=== PATIENT | female | born 1965 | race Caucasian/White ===

== ENCOUNTER → 2016-08-03 | Outpatient (CLI) | payer OTHER ==
[2016-08-03 10:21] LABS: Basophils # (A) 0.1 k/uL (0-0.2); Basophils % (A) 1 %; CH 28.6; CHCM 33.3; Eosinophils # (A) 0.1 k/uL (0-0.7); Eosinophils % (A) 1 %; HCT 39.8 % (34.0-46.0); HDW 2.63; HGB 12.7 gm/dL (11.4-16.0); Luc # (Auto) 0.07; Luc % (Auto) 2; Lymphocytes # (A) 1.4 k/uL (1.0-4.8); Lymphocytes % (A) 29 %; MCH 27.5 pg (25.0-35.0); Mean Platelet Volume 9.9; Monocytes # (A) 0.2 k/uL (0-1.0); Monocytes % (A) 4 %; Neutrophils % (A) 63 %; RBC 4.62 m/uL (3.80-5.40); RDW 13.2 % (11.5-15.5); WBC 4.8 k/uL (3.8-10.6); WBC (Perox) 5.08
[2016-08-03 10:42] LABS: ALT 31 U/L (9-52); AST 23 U/L (14-36); Alkaline Phosphatase 66 U/L (38-126); Anion Gap 10 mmol/L; Blood Urea Nitrogen 13 mg/dL (7-17); Calcium 9.2 mg/dL (8.4-10.2); Carbon Dioxide 27 mmol/L (22-30); Chloride 103 mmol/L (98-107); Cholesterol 152 mg/dL (<200); Glucose 144 mg/dL (74-99); HDL Cholesterol 69 mg/dL (40-60); Non-African American GFR(MDRD) >60 (>60 ml/min/1.73 sqM); Potassium 4.7 mmol/L (3.5-5.1); Sodium 140 mmol/L (137-145); Total Bilirubin 0.8 mg/dL (0.2-1.3); Total Protein 7.2 g/dL (6.3-8.2); Triglycerides 56 mg/dL (<150)
[2016-08-03 19:59] LABS: Hemoglobin A1C 7.3 % (4.2-6.1)
== END | disposition home or self-care (01) ==
LOC: LABWHC1 09:36
PROVIDERS: ATTEND Family Medicine
DX: E10.9 Type 1 diabetes mellitus without complications (principal)
CPT/HCPCS: 36415; 80053; 80061; 82043; 83036; 84443; 85025

== ENCOUNTER → 2016-09-17 | Outpatient (CLI) | payer OTHER ==
--- NOTE | 2016-09-20 09:20 | MM ---
Reason for exam: screening (asymptomatic). Last mammogram was performed 1 year ago. Physical Findings: A clinical breast exam by your physician is recommended on an annual basis and results should be correlated with mammographic findings. MG Screening Mammo w CAD Bilateral CC and MLO view(s) were taken. Prior study comparison: September 06, 2015, bilateral MG screening mammo w CAD. February 06, 2014, bilateral MG screening mammo w CAD. December 19, 2012, bilateral digital screening mammo w/CAD. There are scattered fibroglandular densities. There is no discrete abnormality. ASSESSMENT: Negative, BI-RAD 1 RECOMMENDATION: Routine screening mammogram of both breasts in 1 year.
== END | disposition home or self-care (01) ==
LOC: RADMAMWWP 14:54
PROVIDERS: ATTEND Family Medicine
DX: Z12.31 Encounter for screening mammogram for malignant neoplasm of breast (principal)

== ENCOUNTER → 2017-03-04 | Outpatient (CLI) | payer BC ==
[2017-03-04 11:09] LABS: ALT 44 U/L (9-52); AST 29 U/L (14-36); Alkaline Phosphatase 80 U/L (38-126); Anion Gap 10 mmol/L; Blood Urea Nitrogen 13 mg/dL (7-17); Calcium 9.2 mg/dL (8.4-10.2); Carbon Dioxide 28 mmol/L (22-30); Chloride 102 mmol/L (98-107); Cholesterol 148 mg/dL (<200); Glucose 170 mg/dL (74-99); HDL Cholesterol 70 mg/dL (40-60); Non-African American GFR(MDRD) >60 (>60 ml/min/1.73 sqM); Potassium 4.6 mmol/L (3.5-5.1); Sodium 140 mmol/L (137-145); Total Bilirubin 0.7 mg/dL (0.2-1.3); Total Protein 7.4 g/dL (6.3-8.2)
[2017-03-04 14:23] LABS: Hemoglobin A1C 7.6 % (4.2-6.1)
== END | disposition home or self-care (01) ==
LOC: LABWHC1 10:14
PROVIDERS: ATTEND Family Medicine
DX: E10.9 Type 1 diabetes mellitus without complications (principal)
CPT/HCPCS: 36415; 80053; 80061; 83036

== ENCOUNTER → 2017-09-20 | Outpatient (CLI) | payer BC ==
[2017-09-20 10:20] LABS: Basophils % (A) 1 %; Eosinophils # (A) 0.1 k/uL (0-0.7); Eosinophils % (A) 1 %; HCT 38.4 % (34.0-46.0); HGB 12.5 gm/dL (11.4-16.0); Lymphocytes # (A) 1.2 k/uL (1.0-4.8); Lymphocytes % (A) 21 %; MCH 27.8 pg (25.0-35.0); MCHC 32.5 g/dL (31.0-37.0); MCV 85.4 fL (80.0-100.0); Mean Platelet Volume 9.5; Monocytes # (A) 0.2 k/uL (0-1.0); Monocytes % (A) 3 %; Neutrophils % (A) 73 %; Platelet Count 222 k/uL (150-450); RBC 4.49 m/uL (3.80-5.40); WBC 5.5 k/uL (3.8-10.6)
[2017-09-20 10:33] LABS: ALT 27 U/L (9-52); AST 19 U/L (14-36); Albumin 3.9 g/dL (3.5-5.0); Alkaline Phosphatase 81 U/L (38-126); Anion Gap 9 mmol/L; Blood Urea Nitrogen 10 mg/dL (7-17); Calcium 9.4 mg/dL (8.4-10.2); Carbon Dioxide 30 mmol/L (22-30); Chloride 102 mmol/L (98-107); Cholesterol 138 mg/dL (<200); Glucose 142 mg/dL (74-99); HDL Cholesterol 62 mg/dL (40-60); LDL Cholesterol,Calculated 64 mg/dL (0-99); Potassium 4.3 mmol/L (3.5-5.1); Sodium 141 mmol/L (137-145); Total Bilirubin 0.6 mg/dL (0.2-1.3); Triglycerides 58 mg/dL (<150)
[2017-09-20 19:22] LABS: Hemoglobin A1C 6.9 % (4.0-6.0)
== END | disposition home or self-care (01) ==
LOC: LABWHC1 09:56
PROVIDERS: ATTEND Family Medicine
DX: E10.9 Type 1 diabetes mellitus without complications (principal)
CPT/HCPCS: 36415; 80053; 80061; 82043; 82570; 83036; 84443; 85025

== ENCOUNTER → 2018-03-22 | Outpatient (CLI) | payer BC ==
[2018-03-22 11:07] LABS: ALT 33 U/L (9-52); AST 26 U/L (14-36); Albumin 3.7 g/dL (3.5-5.0); Alkaline Phosphatase 66 U/L (38-126); Anion Gap 10 mmol/L; Blood Urea Nitrogen 13 mg/dL (7-17); Carbon Dioxide 24 mmol/L (22-30); Chloride 105 mmol/L (98-107); Cholesterol 109 mg/dL (<200); Glucose 103 mg/dL (74-99); HDL Cholesterol 40 mg/dL (40-60); LDL Cholesterol,Calculated 59 mg/dL (0-99); Potassium 4.4 mmol/L (3.5-5.1); Sodium 139 mmol/L (137-145); Total Bilirubin 0.8 mg/dL (0.2-1.3); Total Protein 6.8 g/dL (6.3-8.2); Triglycerides 50 mg/dL (<150)
[2018-03-22 19:12] LABS: Hemoglobin A1C 6.7 % (4.0-6.0)
== END | disposition home or self-care (01) ==
LOC: LABWHC1 10:19
PROVIDERS: ATTEND Family Medicine
DX: E10.9 Type 1 diabetes mellitus without complications (principal)
CPT/HCPCS: 36415; 80053; 80061; 83036

== ENCOUNTER → 2018-05-02 | Outpatient (CLI) | payer BC ==
--- NOTE | 2018-05-04 10:44 | MM ---
Reason for exam: screening (asymptomatic). Last mammogram was performed 1 year and 7 months ago. MG 3D Screening Mammo W/Cad Bilateral CC and MLO view(s) were taken. Prior study comparison: September 17, 2016, bilateral MG screening mammo w CAD. September 06, 2015, bilateral MG screening mammo w CAD. There are scattered fibroglandular densities. No significant changes when compared with prior studies. ASSESSMENT: Negative, BI-RAD 1 RECOMMENDATION: Routine screening mammogram of both breasts in 1 year.
== END ==
LOC: RADMAMWWP 15:12
PROVIDERS: ATTEND Family Medicine
DX: Z12.31 Encounter for screening mammogram for malignant neoplasm of breast (principal)
CPT/HCPCS: 77063; 77067

== ENCOUNTER → 2018-10-06 | Outpatient (CLI) | payer BC ==
[2018-10-06 10:50] LABS: Basophils # (A) 0.1 k/uL (0-0.2); Basophils % (A) 1 %; Eosinophils # (A) 0.1 k/uL (0-0.7); Eosinophils % (A) 1 %; HCT 39.3 % (34.0-46.0); HGB 13.2 gm/dL (11.4-16.0); Lymphocytes # (A) 1.4 k/uL (1.0-4.8); Lymphocytes % (A) 21 %; MCH 27.9 pg (25.0-35.0); MCHC 33.7 g/dL (31.0-37.0); MCV 82.9 fL (80.0-100.0); Mean Platelet Volume 10.6; Monocytes # (A) 0.2 k/uL (0-1.0); Monocytes % (A) 4 %; Neutrophils # (A) 4.9 k/uL (1.3-7.7); Neutrophils % (A) 73 %; Platelet Count 226 k/uL (150-450); RBC 4.74 m/uL (3.80-5.40); RDW 14.5 % (11.5-15.5); WBC 6.8 k/uL (3.8-10.6)
[2018-10-06 16:45] LABS: Albumin 4.2 g/dL (3.80-4.90); Albumin/Globulin Ratio 1.68 (1.60-3.17); Anion Gap 5.8 mmol/L (4.00-12.00); Calcium 9.2 mg/dL (8.7-10.3); Carbon Dioxide 27.2 mmol/L (21.6-31.8); Globulin 2.5 g/dL (1.6-3.3); LDL Cholesterol,Calculated 74.6 mg/dL (0.0-131.0); Potassium 4.2 mmol/L (3.5-5.5); Total Bilirubin 0.8 mg/dL (0.3-1.2); Total Protein 6.7 g/dL (6.2-8.2); VLDL Calculation 10.4 mg/dL (5.00-40.00)
[2018-10-06 17:55] LABS: Hemoglobin A1C 7.8 % (4.0-6.0)
== END | disposition home or self-care (01) ==
LOC: LABWHC1 09:58
PROVIDERS: ATTEND Family Medicine
DX: E10.9 Type 1 diabetes mellitus without complications (principal)
CPT/HCPCS: 36415; 80053; 80061; 82043; 82570; 83036; 84443; 85025

== ENCOUNTER → 2019-05-21 | Outpatient (CLI) | payer BC ==
[2019-05-21 17:00] LABS: ALT 23 U/L (8-44); AST 26 U/L (13-35); African American GFR (CKD) 116.3 (60.0-200.0); Alkaline Phosphatase 75 U/L (41-126); BUN/Creat Ratio 18.57 Ratio (12.00-20.00); Carbon Dioxide 28.5 mmol/L (21.6-31.8); Chloride 106 mmol/L (96-109); Chol/HDL Ratio 2.56; Cholesterol 141 mg/dL (0-200); Globulin 2.3 g/dL (1.6-3.3); Glucose 58 mg/dL (70-110); Sodium 142 mmol/L (135-145); Total Bilirubin 0.5 mg/dL (0.2-1.2); Total Protein 6.2 g/dL (6.2-8.2); Triglycerides <50.0 mg/dL (0.0-149.0)
[2019-05-21 19:53] LABS: Hemoglobin A1C 8.2 % (4.0-6.0)
== END | disposition home or self-care (01) ==
LOC: LABWHC1 08:33
PROVIDERS: ATTEND Family Medicine
DX: E10.9 Type 1 diabetes mellitus without complications (principal)
CPT/HCPCS: 36415; 80053; 80061; 83036

== ENCOUNTER → 2019-12-04 | Outpatient (CLI) | payer BC ==
[2019-12-04 10:30] LABS: Basophils % (A) 1 %; Eosinophils # (A) 0.2 k/uL (0-0.7); Eosinophils % (A) 2 %; HGB 13.9 gm/dL (11.4-16.0); Lymphocytes # (A) 1.6 k/uL (1.0-4.8); Lymphocytes % (A) 24 %; MCHC 33.8 g/dL (31.0-37.0); MCV 88.7 fL (80.0-100.0); Mean Platelet Volume 9.7; Monocytes # (A) 0.2 k/uL (0-1.0); Monocytes % (A) 3 %; Neutrophils # (A) 4.4 k/uL (1.3-7.7); Neutrophils % (A) 68 %; Platelet Count 231 k/uL (150-450); RBC 4.62 m/uL (3.80-5.40); RDW 13.1 % (11.5-15.5); WBC 6.5 k/uL (3.8-10.6)
[2019-12-04 10:36] LABS: ALT 52 U/L (4-34); AST 53 U/L (14-36); African American GFR (CKD) >90 (>60 ml/min/1.73 sqM); Albumin 3.9 g/dL (3.5-5.0); Alkaline Phosphatase 85 U/L (38-126); Anion Gap 7 mmol/L; Blood Urea Nitrogen 12 mg/dL (7-17); Calcium 9.2 mg/dL (8.4-10.2); Carbon Dioxide 28 mmol/L (22-30); Chloride 104 mmol/L (98-107); Cholesterol 146 mg/dL (<200); Glucose 65 mg/dL (74-99); HDL Cholesterol 69 mg/dL (40-60); LDL Cholesterol,Calculated 65 mg/dL (0-99); Non-African American GFR(CKD) >90 (>60 ml/min/1.73 sqM); Potassium 4.6 mmol/L (3.5-5.1); Sodium 139 mmol/L (137-145); Total Bilirubin 0.6 mg/dL (0.2-1.3); Total Protein 7.1 g/dL (6.3-8.2); Triglycerides 61 mg/dL (<150)
[2019-12-04 18:14] LABS: Hemoglobin A1C 7.4 % (4.0-6.0)
[2019-12-05 00:42] LABS: Urine Creatinine 151.4 mg/dL
--- NOTE | 2019-12-06 07:59 | MM ---
Reason for exam: screening (asymptomatic). Last mammogram was performed 1 year and 7 months ago. Physical Findings: A clinical breast exam by your physician is recommended on an annual basis and results should be correlated with mammographic findings. MG 3D Screening Mammo W/Cad Bilateral CC and MLO view(s) were taken. Prior study comparison: May 02, 2018, bilateral MG 3d screening mammo w/cad. September 17, 2016, bilateral MG screening mammo w CAD. There are scattered fibroglandular densities. There is no discrete abnormality. ASSESSMENT: Negative, BI-RAD 1 RECOMMENDATION: Routine screening mammogram of both breasts in 1 year.
== END | disposition home or self-care (01) ==
LOC: RADMAMWWP 09:02
PROVIDERS: ATTEND Family Medicine
DX: Z12.31 Encounter for screening mammogram for malignant neoplasm of breast (principal); E10.9 Type 1 diabetes mellitus without complications
CPT/HCPCS: 36415; 77063; 77067; 80053; 80061; 82043; 82570; 83036; 84443; 85025

== ENCOUNTER → 2021-05-01 | Outpatient (CLI) | payer BC ==
--- NOTE | 2021-05-05 08:12 | MM ---
Reason for exam: screening (asymptomatic). Last mammogram was performed 1 year and 5 months ago. Physical Findings: A clinical breast exam by your physician is recommended on an annual basis and results should be correlated with mammographic findings. MG 3D Screening Mammo W/Cad Bilateral CC, MLO, and XCCL view(s) were taken. Prior study comparison: December 04, 2019, bilateral MG 3d screening mammo w/cad. May 02, 2018, bilateral MG 3d screening mammo w/cad. September 17, 2016, bilateral MG screening mammo w CAD. There are scattered fibroglandular densities. No significant changes when compared with prior studies. ASSESSMENT: Negative, BI-RAD 1 RECOMMENDATION: Routine screening mammogram of both breasts in 1 year.
== END | disposition home or self-care (01) ==
LOC: RADMAMWWP 15:54
PROVIDERS: ATTEND Family Medicine
DX: Z12.31 Encounter for screening mammogram for malignant neoplasm of breast (principal)
CPT/HCPCS: 77063; 77067

== ENCOUNTER 2021-05-27 09:10 | Inpatient (IN) | payer BC ==
[2021-05-27] MEDS ORDERED: SODIUM CHLORIDE 0.9% 500 ML 500 ML IV STA (10:06)
[2021-05-27 10:35] LABS: Basophils % (A) 0 %; Eosinophils % (A) 0 %; HCT 38.9 % (34.0-46.0); HGB 13.4 gm/dL (11.4-16.0); Lymphocytes # (A) 0.9 k/uL (1.0-4.8); Lymphocytes % (A) 10 %; MCH 29.6 pg (25.0-35.0); MCHC 34.3 g/dL (31.0-37.0); MCV 86.3 fL (80.0-100.0); Mean Platelet Volume 9.4; Monocytes # (A) 0.3 k/uL (0-1.0); Monocytes % (A) 3 %; Neutrophils # (A) 7.7 k/uL (1.3-7.7); Neutrophils % (A) 86 %; Platelet Count 259 k/uL (150-450); RBC 4.51 m/uL (3.80-5.40); RDW 13.6 % (11.5-15.5)
--- NOTE | 2021-05-27 10:37 | ED ---
General Adult HPI - General Chief complaint: Neuro Symptoms/Deficit Stated complaint: Loss of mobilitiy rt side Time Seen by Provider: 05/27/21 09:44 Source: patient, RN notes reviewed, old records reviewed Mode of arrival: ambulatory Limitations: no limitations - History of Present Illness Initial comments: 55-year-old female presenting with right-sided arm and leg weakness over the past 3 days. Patient initially woke up on Tuesday morning with some weakness which resolved throughout the day. This is happened twice since then. She states she feels as though her right arm and right leg are not coordinated. She has no previous history of CVA. She has a history of hyperlipidemia and diabetes. She denies headache. Denies chest pain. Denies abdominal pain. Denies fever. - Related Data Home Medications Medication Instructions Recorded Confirmed Simvastatin [Zocor] 20 mg PO HS 03/13/14 05/27/21 Insulin Aspart [Insulin Aspart See Protocol SQ TID-W/MEALS MDD 30 05/27/21 05/27/21 Flexpen] units Insulin Degludec [Tresiba 44 units SQ HS 05/27/21 05/27/21 Flextouch U-200 Pen] lisinopriL [Zestril] 5 mg PO HS 05/27/21 05/27/21 Allergies Allergy/AdvReac Type Severity Reaction Status Date / Time pseudoephedrine HCl Allergy Rash/Hives Verified 05/27/21 12:01 [From [facility]] Review of Systems ROS Statement: Those systems with pertinent positive or pertinent negative responses have been documented in the HPI. ROS Other: All systems not noted in ROS Statement are negative. 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, ELEVATED LIVER ENZYMES History of Any Multi-Drug Resistant Organisms: None Reported Past Surgical History: No Surgical Hx Reported Additional Past Surgical History / Comment(s): TOOTH EXTRACTION,FACIAL MOLE REMOVED Past Anesthesia/Blood Transfusion Reactions: Previous Problems w/ Anesthesia Additional Past Anesthesia/Blood Transfusion Reaction / Comment(s): DIFFICULTY WAKING Past Psychological History: No Psychological Hx Reported Smoking Status: Never smoker Past Alcohol Use History: Rare Past Drug Use History: None Reported - Past Family History Father Additional Family Medical History / Comment(s): AT AGE 42 FROM LEUKEMIA, PSORIASES Mother Family Medical History: CVA/TIA, Diabetes Mellitus, Myocardial Infarction ([place]) Additional Family Medical History / Comment(s): GLAUCOMA, General Exam Limitations: no limitations General appearance: alert, in no apparent distress Head exam: Present: atraumatic, normocephalic Eye exam: Present: normal appearance, PERRL ENT exam: Present: normal exam Neck exam: Present: normal inspection. Absent: tenderness, meningismus Respiratory exam: Present: normal lung sounds bilaterally. Absent: respiratory distress, wheezes Cardiovascular Exam: Present: regular rate, normal rhythm GI/Abdominal exam: Present: soft. Absent: distended, tenderness, guarding Extremities exam: Present: normal inspection, normal capillary refill Neurological exam: Present: alert, oriented X3, CN II-XII intact, motor sensory deficit (Drift right lower extremity, NIH of 1) Psychiatric exam: Present: normal affect, normal mood Skin exam: Present: warm, dry, intact. Absent: cyanosis, diaphoretic Course Vital Signs 05/27/21 05/27/21 09:19 12:46 Temperature 97.9 F Pulse Rate 77 78 Respiratory 18 16 Rate Blood Pressure 157/70 128/80 O2 Sat by Pulse 98 98 Oximetry EKG Findings - EKG Comments: EKG Findings:: EKG: Normal sinus rhythm rate of 78, [place] interval 154, QRS duration 84, QTC [address] segment elevation. Medical Decision Making - Medical Decision Making 55-year-old female presenting with 3 days of intermittent right-sided numbness and weakness. On exam the patient has a slight drift of the right lower extremity. There is no upper extremity drift or weakness. No facial asymmetry, normal speech. Workup is initiated for this patient include a CT CT angiography. These are both negative. She has normal CBC, normal CMP. Patient is not a TPA candidate given the low NIH of 1 and 3 days of duration of her symptoms. I do recommend she be admitted for further stroke evaluation. Case discussed with Dr. Tijerina, who will admit with neurology on consultation. - Lab Data Result diagrams: 05/27/21 10:30 05/27/21 10:30 Lab Results 05/27/21 05/27/21 05/27/21 Range/Units 10:30 10:30 10:30 WBC 9.0 (3.8-10.6) k/uL RBC 4.51 (3.80-5.40) m/uL Hgb 13.4 (11.4-16.0) gm/dL Hct 38.9 (34.0-46.0) % MCV 86.3 (80.0-100.0) fL MCH 29.6 (25.0-35.0) pg MCHC 34.3 (31.0-37.0) g/dL RDW 13.6 (11.5-15.5) % Plt Count 259 (150-450) k/uL MPV 9.4 Neutrophils % 86 % Lymphocytes % 10 % Monocytes % 3 % Eosinophils % 0 % Basophils % 0 % Neutrophils # 7.7 (1.3-7.7) k/uL Lymphocytes # 0.9 L (1.0-4.8) k/uL Monocytes # 0.3 (0-1.0) k/uL Eosinophils # 0.0 (0-0.7) k/uL Basophils # 0.0 (0-0.2) k/uL PT 9.9 (9.0-12.0) sec INR 0.9 (<1.2) APTT 24.0 (22.0-30.0) sec Sodium 139 (137-145) mmol/L Potassium 4.3 (3.5-5.1) mmol/L Chloride 105 (98-107) mmol/L Carbon Dioxide 26 (22-30) mmol/L Anion Gap 8 mmol/L BUN 13 (7-17) mg/dL Creatinine 0.64 (0.52-1.04) mg/dL Est GFR (CKD-EPI)AfAm >90 (>60 ml/min/1.73 sqM) Est GFR (CKD-EPI)NonAf >90 (>60 ml/min/1.73 sqM) Glucose 133 H (74-99) mg/dL Calcium 9.3 (8.4-10.2) mg/dL Total Bilirubin 0.5 (0.2-1.3) mg/dL AST 36 (14-36) U/L ALT 32 (4-34) U/L Alkaline Phosphatase 82 (38-126) U/L Troponin I (0.000-0.034) ng/mL Total Protein 7.1 (6.3-8.2) g/dL Albumin 3.9 (3.5-5.0) g/dL 05/27/21 Range/Units 10:30 WBC (3.8-10.6) k/uL RBC (3.80-5.40) m/uL Hgb (11.4-16.0) gm/dL Hct (34.0-46.0) % MCV (80.0-100.0) fL MCH (25.0-35.0) pg MCHC (31.0-37.0) g/dL RDW (11.5-15.5) % Plt Count (150-450) k/uL MPV Neutrophils % % Lymphocytes % % Monocytes % % Eosinophils % % Basophils % % Neutrophils # (1.3-7.7) k/uL Lymphocytes # (1.0-4.8) k/uL Monocytes # (0-1.0) k/uL Eosinophils # (0-0.7) k/uL Basophils # (0-0.2) k/uL PT (9.0-12.0) sec INR (<1.2) APTT (22.0-30.0) sec Sodium (137-145) mmol/L Potassium (3.5-5.1) mmol/L Chloride (98-107) mmol/L Carbon Dioxide (22-30) mmol/L Anion Gap mmol/L BUN (7-17) mg/dL Creatinine (0.52-1.04) mg/dL Est GFR (CKD-EPI)AfAm (>60 ml/min/1.73 sqM) Est GFR (CKD-EPI)NonAf (>60 ml/min/1.73 sqM) Glucose (74-99) mg/dL Calcium (8.4-10.2) mg/dL Total Bilirubin (0.2-1.3) mg/dL AST (14-36) U/L ALT (4-34) U/L Alkaline Phosphatase (38-126) U/L Troponin I <0.012 (0.000-0.034) ng/mL Total Protein (6.3-8.2) g/dL Albumin (3.5-5.0) g/dL Disposition Clinical Impression: Cerebrovascular accident (CVA) Disposition: ADMITTED IP TO THIS HOSP Condition: Stable Is patient prescribed a controlled substance at d/c from ED?: No Referrals: Lamin De Leon MD [Primary Care Provider] - 1-2 days Decision to Admit Reason: Admit from EC Decision Date: 05/27/21 Decision Time: 13:09
[2021-05-27 10:44] LABS: ALT 32 U/L (4-34); AST 36 U/L (14-36); Albumin 3.9 g/dL (3.5-5.0); Alkaline Phosphatase 82 U/L (38-126); Calcium 9.3 mg/dL (8.4-10.2); Carbon Dioxide 26 mmol/L (22-30); Glucose 133 mg/dL (74-99); Potassium 4.3 mmol/L (3.5-5.1); Sodium 139 mmol/L (137-145); Total Bilirubin 0.5 mg/dL (0.2-1.3)
[2021-05-27 10:45] LABS: African American GFR (CKD) >90 (>60 ml/min/1.73 sqM); Anion Gap 8 mmol/L; Blood Urea Nitrogen 13 mg/dL (7-17); Chloride 105 mmol/L (98-107); Non-African American GFR(CKD) >90 (>60 ml/min/1.73 sqM); Total Protein 7.1 g/dL (6.3-8.2)
[2021-05-27 11:06] LABS: INR 0.9 (<1.2); Prothrombin Time 9.9 sec (9.0-12.0)
--- NOTE | 2021-05-27 12:01 | XR ---
EXAMINATION TYPE: XR chest 2V DATE OF EXAM: 05/27/2021 COMPARISON: None HISTORY: 55-year-old female confusion, altered mental status TECHNIQUE: AP and lateral views FINDINGS: Heart limits of normal in size. Aorta and pulmonary vasculature within normal limits. Mild interstiti al prominence is a chronic appearance. No consolidation or pleural effusion. IMPRESSION: Chronic appearing changes without acute cardiopulmonary process.
--- NOTE | 2021-05-27 12:16 | CT ---
EXAMINATION TYPE: CT brain wo con DATE OF EXAM: 05/27/2021 COMPARISON: None HISTORY: right side weakness CT DLP: 985.[address] of the brain was performed. The ventricles, basal cisterns and sulci overlying the cerebral convexities demonstrate a normal appe arance. There is no evidence for intracranial hemorrhage or sulcal effacement. No mass effects are seen. Osseous calvarium is intact. If symptoms persist consider MRI as clinically warranted. IMPRESSION: 1. No acute intracranial process is seen at this time.
--- NOTE | 2021-05-27 12:24 | CT ---
EXAMINATION TYPE: CT angio head neck DATE OF EXAM: 05/27/2021 COMPARISON: None HISTORY: right side weakness CT DLP: 517.8 mGycm CONTRAST: Performed with IV Contrast, patient injected with 65 mL of Isovue 370. Combination Contrast CTA cervical carotids and [place] CTA cervical carotids with 3-D recons truction Contrast CTA of the cervical carotids was performed 3-D reconstruction imaging obtained at a separate workstation. Right carotid system: Mild plaque is seen of the right common carotid artery. There is mild plaque a lso noted at the carotid bulb and proximal ICA. No significant diameter reduction. ECA is patent. Right vertebral artery appears unremarkable. Left carotid system: Mild plaque is seen of the left common carotid artery. There is mild plaque als o noted at the carotid bulb and proximal ICA. No significant diameter reduction. ECA is patent. Lef t vertebral artery appears unremarkable. IMPRESSION: 1. No significant diameter reduction to account for the patient's symptoms. CTA [place] with 3-D reconstruction Contrast CTA of the [place] was performed 3-D reconstruction imaging obtained at a separate workstation. Vertebrobasilar system as well as intracranial portions of the internal carotid arteries and their [place] tributaries are patent. I do not see evidence for sizable aneurysm or vascular malformation. Pl ease note MRI provides greater sensitivity and specificity. Visualized brain appears grossly unremar kable. IMPRESSION: 1. No significant abnormality. NASCET criteria was used in interpretation of this exam?
[2021-05-27] MEDS ORDERED: ASPIRIN 325 MG TAB PO STA (12:32)
[2021-05-27] MEDS: SODIUM CHLORIDE 0.9% 1,000 ML IV SCH (15:34)
--- NOTE | 2021-05-27 16:10 | US ---
EXAMINATION TYPE: US carotid duplex BILAT DATE OF EXAM: 05/27/2021 COMPARISON: NONE CLINICAL HISTORY: CVA. EXAM MEASUREMENTS: RIGHT: Peak Systolic Velocity (PSV) cm/sec ----- Right CCA: 107.0 ----- Right ICA: 110.5 ----- Right ECA: 103.1 ICA/CCA ratio: 1.0 RIGHT: End Diastole cm/sec ----- Right CCA: 19.8 ----- Right ICA: 31.4 ----- Right ECA: 8.7 LEFT: Peak Systolic Velocity (PSV) cm/sec ----- Left CCA: 114.9 ----- Left ICA: 108.0 ----- Left ECA: 126.8 ICA/CCA ratio: 0.9 LEFT: End Diastole cm/sec ----- Left CCA: 22.8 ----- Left ICA: 32.4 ----- Left ECA: 16.1 VERTEBRALS (direction of flow): Right Vertebral: Antegrade Left Vertebral: Antegrade Rhythm: Normal No significant stenosis IMPRESSION: No evidence for hemodynamically significant stenosis. Criteria for Assigning % of Stenosis / Diameter reduction (Estimation based on the indirect measurements of the internal carotid artery velocities (ICA PSV). 1. Normal (no stenosis)=ICA PSV < 125 cm/s: ratio < 2.0: ICA EDV<40 cm/s. 2. Less than 50% stenosis=ICA PSV < 125 cm/s: ratio < 2.0: ICA EDV<40 cm/s. 3. 50 to 69% stenosis=ICA PSV of 125 to 230 cm/s: ration 2.0 ? 4.0: ICA EDV 40-100 cm/s. 4. Greater than 70% stenosis to near occlusion= ICA PSV > 230 cm/s: ratio > 4.0: ICA EDV > 100 cm/s. 5. Near occlusion= ICA PSV velocities may be low or undetectable: variable ratio and ICA EDV. 6. Total occlusion=unable to detect flow.
--- NOTE | 2021-05-27 16:34 | P.CNNES ---
History of Present Illness Consult date: 05/27/21 Requesting physician: Jeff Walker Reason for Consult: Stroke/TIA History of Present Illness: This is a 55-year-old woman with medical history of diabetes mellitus who presented to the emergency department on 05/27/2021 for right-sided weakness. She said he had recurrent episode of weakness that started this past Tuesday in the AM, when she woke-up she noticed her right side was weak and felt like "royal" feeling. She denies any associated paresthesia, left side deficits, visual disturbance, headache, word finding difficulty, swallowing. The episode last for about 20-30 minutes then resolved. Then had another brief same episode that over the right side then resolved. Then had another episode this morning upon waking-up at 6:30am she noticed her right upper and lower extremity was weak and felt it was rubbery and felt improvement at 10am. Her last normal state was 10pm yesterday. She continues to denies any other associated problems with it. Patient denies of any history of stroke or TIA in the past. She denies of history of seizure or Migraine. She takes ASA 81mg daily and on Zocor 20mg qhs as protective since has diabetes. She has a brother who has multiple sclerosis. Patient rarely drinks alcohol. She denies any illicit drug use or tobacco use. Workup in the hospital consisted of: Initial vital signs was blood pressure 157/70, heart rate of 77, respiratory of 18, temperature of 97.9 Fahrenheit oral pulse ox of 98% room air. CBC with differential is unremarkable. Sodium is 139, creatinine 0.64, serum glucose 133, calcium is 9.3, AST of 36, ALT of 32. CT of the head is reported as no acute process seen at this time. I personally could not review images since there is only a report and there is no imaging that's uploaded for both the CT and the CT angiography of the head and neck CT angiography of the head and neck support as no significant diameter reduction to account for the patient's symptoms. No significant abnormality. EKG is reported as normal sinus rhythm. Normal EKG. In the ED patient had NIH 1 for right leg deficit. Review of Systems Review of system: The 12 point system was reviewed and apparent positive and ne gative per HPI. 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, ELEVATED LIVER ENZYMES History of Any Multi-Drug Resistant Organisms: None Reported Past Surgical History: No Surgical Hx Reported Additional Past Surgical History / Comment(s): TOOTH EXTRACTION,FACIAL MOLE REMOVED Past Anesthesia/Blood Transfusion Reactions: Previous Problems w/ Anesthesia Additional Past Anesthesia/Blood Transfusion Reaction / Comment(s): DIFFICULTY WAKING Past Psychological History: No Psychological Hx Reported Smoking Status: Never smoker Past Alcohol Use History: Rare Past Drug Use History: None Reported - Past Family History Father Additional Family Medical History / Comment(s): AT AGE 42 FROM LEUKEMIA, PSORIASES Mother Family Medical History: CVA/TIA, Diabetes Mellitus, Myocardial Infarction ([place]) Additional Family Medical History / Comment(s): GLAUCOMA, Medications and Allergies Home Medications Medication Instructions Recorded Confirmed Type Simvastatin [Zocor] 20 mg PO HS 03/13/14 05/27/21 History Insulin Aspart [Insulin Aspart See Protocol SQ TID-W/MEALS MDD 30 05/27/21 05/27/21 History Flexpen] units Insulin Degludec [Tresiba 44 units SQ HS 05/27/21 05/27/21 History Flextouch U-200 Pen] lisinopriL [Zestril] 5 mg PO HS 05/27/21 05/27/21 History Allergies Allergy/AdvReac Type Severity Reaction Status Date / Time pseudoephedrine HCl Allergy Rash/Hives Verified 05/27/21 12:01 [From [facility]] Physical Examination - Vital Signs Vital Signs: Vital Signs Temp Pulse Resp BP Pulse Ox 05/27/21 12:46 78 16 128/80 98 05/27/21 09:19 97.9 F 77 18 157/70 98 Intake and Output 05/26/21 05/27/21 05/27/21 22:59 06:59 14:59 Other: Weight 86.183 kg GENERAL: The patient is lying in bed and is not in acute distress. CHEST: The heart rate is regular rate rhythm. No murmurs to auscultation. No carotid bruit bilaterally. LUNG: Clear to auscultation bilaterally no wheezing noted throughout. Not labored breathing. ABDOMEN/GI: Bowel sounds present in all 4 quadrants. No tenderness to palpation throughout. NEUROLOGICAL: Higher mental function: The patient is awake, alert, oriented to self, place and time. Patient is following commands. No aphasia and no neglect. Cranial nerves: The pupils are round, equal and reactive to light and accommodation. Visual garland are full to confrontation throughout. Extraocular movement is intact no nystagmus is noted. Facial sensation is normal to touch throughout. The facial strength is normal throughout. Hearing is normal bilaterally to hand rub. Tongue is midline and moved [id number] without any difficulty. No dysarthria is noted. Shoulder shrug is normal bilaterally. Motor: Gait seems unsteady and slow but was not swaying toward one side or the other. The strength is 5 over 5 throughout. Normal tone and bulk. Cerebellum: Normal finger to nose bilaterally. Sensation: Sensation is normal to touch throughout. Reflexes (right/left): 3+ throughout except ankles are 2+. Plantars are downgoing bilaterally. Results - Laboratory Findings CBC and BMP: 05/27/21 10:30 05/27/21 10:30 Abnormal Lab Findings: Abnormal Labs 05/27/21 05/27/21 10:30 10:30 Lymphocytes # 0.9 L Glucose 133 H Assessment and Plan Assessment: * Recurrent transient right hemiparesis (onset is 05/24/2021. Had total of 3 episodes (Tuesday, Tuesday and Tuesday (05/27/21). On examination her gait is unsteady). Seems Possible acute stroke. No IV TPA since outside the window. Cannot rule out other etiologies (such as Demyelinatin diseases (especially with family history of MS) * Diabetes mellitus * Hyperlipidemia Plan: Patient was given aspirin 325 once then the patient was started on aspirin 325mg daily (was at home dose of ASA 81mg daily). I will not start the patient on dual antiplatelets untill we have more information from MRI. Patient was started on Lipitor 80 mg daily at bedtime by ED and is to be continued for secondary stroke prophylaxis MRI Brain is ordered by the primary team and is pending. I also ordered MRI of the cervical spine with and without. Lipid panel, hemoglobin A1c are ordered. I ordered TSH level 2-D echo is ordered and is pending. Continue neuro checks On cardiac monitoring PT OT and HUMAN RESOURCES DIRECTOR are consulted We'll defer the rest of medical management to the primary team DVT prophylaxis will defer management to primary team (recommend SCD for now until we get result of MRI). The plan is discussed with the patient and her nurse. Thank you for the Consultation. Karel Urena M.D. Neuro-hospitalist Time with Patient: Greater than 30
[2021-05-27] MEDS ORDERED: INSULIN ASPART (NovoLOG) 100 UNIT/ML VIAL SQ PRN (17:30)
--- NOTE | 2021-05-27 17:46 | P.HPIM ---
History of Present Illness H&P Date: 05/27/21 Chief Complaint: Right-sided coordination issues 55-year-old woman with medical history of hypertension, hyperlipidemia, type 1 diabetes presented for 3 days of difficulty coordinating right-sided extremity movements. Patient says that upon waking up on Tuesday, patient noticed that she had trouble coordinating her right upper extremity as well as right lower extremity. In addition she felt like her right upper extremity felt rubbery. She notes that throughout the day she tried to walk this off and felt that her symptoms abated by the following day, however, her symptoms returned again this morning prompting concern. She presented to the emergency room for further evaluation. She denies fevers, chills, nausea, vomiting, chest pain, palpitations, syncope, presyncope, cough, dyspnea, abdominal pain, diarrhea, constipation, dysuria, dyschezia, numbness/weakness of extremities. She does report some tingling in the extremities which is normal for her. Workup thus far include brain CT, CT angiography, carotid Doppler on the EKG, chest x-ray with no major abnormalities identified. Lab work is also largely unremarkable except for mildly elevated glucose. 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, ELEVATED LIVER ENZYMES History of Any Multi-Drug Resistant Organisms: None Reported Past Surgical History: No Surgical Hx Reported Additional Past Surgical History / Comment(s): TOOTH EXTRACTION,FACIAL MOLE REMOVED Past Anesthesia/Blood Transfusion Reactions: Previous Problems w/ Anesthesia Additional Past Anesthesia/Blood Transfusion Reaction / Comment(s): DIFFICULTY WAKING Past Psychological History: No Psychological Hx Reported Smoking Status: Never smoker Past Alcohol Use History: Rare Past Drug Use History: None Reported - Past Family History Father Additional Family Medical History / Comment(s): AT AGE 42 FROM LEUKEMIA, PSORIASES Mother Family Medical History: CVA/TIA, Diabetes Mellitus, Myocardial Infarction (CT) Additional Family Medical History / Comment(s): GLAUCOMA, Medications and Allergies Home Medications Medication Instructions Recorded Confirmed Type Simvastatin [Zocor] 20 mg PO HS 03/13/14 05/27/21 History Insulin Aspart [Insulin Aspart See Protocol SQ TID-W/MEALS MDD 30 05/27/21 05/27/21 History Flexpen] units Insulin Degludec [Tresiba 44 units SQ HS 05/27/21 05/27/21 History Flextouch U-200 Pen] lisinopriL [Zestril] 5 mg PO HS 05/27/21 05/27/21 History Allergies Allergy/AdvReac Type Severity Reaction Status Date / Time pseudoephedrine HCl Allergy Rash/Hives Verified 05/27/21 12:01 [From [facility]] Physical Exam Osteopathic Statement: *. No significant issues noted on an osteopathic structural exam other than those noted in the History and Physical/Consult. Vitals: Vital Signs Temp Pulse Resp BP Pulse Ox 05/27/21 16:26 97.8 F 85 18 140/70 97 05/27/21 12:46 78 16 128/80 98 05/27/21 09:19 97.9 F 77 18 157/70 98 Intake and Output 05/27/21 05/27/21 05/27/21 06:59 14:59 22:59 Other: Weight 86.183 kg Gen: awake, alert HEENT: normocephalic, atraumatic, good hearing acuity, moist mucous membranes Resp: good air exchange, breathing comfortably with no accessory muscle use, clear to auscultation bilaterally CVS: good distal perfusion x 4, regular rate and rhythm without murmurs GI: soft, NTTP, ND : no SPT, no CVAT, sexton catheter not present MSK: no pitting edema, no clubbing Neuro: 5 out of 5 motor strength in all 4 extremities, no sensory deficits, cranial nerves II through XII are intact, no deficits in finger to nose or heel to deluna Psych: cooperative, euthymic mood Results CBC & Chem 7: 05/27/21 10:30 05/27/21 10:30 Labs: Abnormal Lab Results - Last 24 Hours (Table) 05/27/21 05/27/21 Range/Units 10:30 10:30 Lymphocytes # 0.9 L (1.0-4.8) k/uL Glucose 133 H (74-99) mg/dL Assessment and Plan Assessment: Right-sided Ataxia -Admit to observation, telemetry -Echocardiogram -MRI -TSH, A1c, lipid panel pending -Neurology consulted -PT/OT/speech therapy -Neurochecks Type 1 diabetes Hypertension Hyperlipidemia -Resume home medications Patient is a full code
--- NOTE | 2021-05-27 20:30 | MR ---
EXAMINATION TYPE: MR brain/cspine wo/w DATE OF EXAM: 05/27/2021 COMPARISON: HISTORY: Transient recurrent right sided weakness since 05-24-21. CVA vs MS CONTRAST: Standard multiplanar, multisequence MRI departmental protocol images were obtained without contrast a nd with 8.5 mL intravenous Gadavist gadolinium contrast. Diffusion images show no evidence of an acute infarct. Ventricles have normal size. There is no mass effect nor midline shift. There is no evidence of intracranial hemorrhage. The diallo-white matter stru ctures have fairly normal signal pattern. There is no evidence of cerebral edema. Sella turcica appea rs normal. Corpus callosum appears normal. Brainstem appears intact. The cervical vertebra have normal alignment. Disc spaces are fairly normal. There is a mild to modera te posterior disc herniation at C6-7 into the spinal canal. There is narrowing of the spinal canal at C6-7 that measures 7 mm. The cervical spinal cord has normal signal pattern. There is no edema. Prev ertebral soft tissues are intact. There is no evidence of cervical paraspinal mass. Contrast images s how no pathologic enhancement. There is normal enhancement of the venous sinuses. IMPRESSION: Negative MR scan of the brain. There is a mild posterior C6-7 cervical disc herniation with a mild relative 7 mm spinal stenosis. No fracture.
[2021-05-27 20:48] LABS: Glucose,Whole Blood 134 mg/dL (75-99)
[2021-05-27] MEDS ORDERED: ATORVASTATIN 80 MG TAB PO SCH (21:00)
[2021-05-27] MEDS ORDERED: lisinopriL 5 MG TAB PO SCH (21:00)
[2021-05-27] MEDS ORDERED: INSULIN DETEMIR (LEVEMIR) 100 UNIT/ML SYR SQ SCH (21:00)
[2021-05-28 06:15] LABS: Glucose,Whole Blood 37 mg/dL (75-99)
[2021-05-28 06:30] LABS: Glucose,Whole Blood 36 mg/dL (75-99)
[2021-05-28 06:39] VITALS: PULSE 68
[2021-05-28 06:40] LABS: Glucose,Whole Blood 40 mg/dL (75-99)
[2021-05-28] MEDS ORDERED: DEXTROSE 50% SYRINGE 50 ML IVP ONE (06:40)
[2021-05-28] MEDS: SODIUM CHLORIDE 0.9% 1,000 ML IV SCH (06:50)
[2021-05-28 06:55] LABS: Glucose,Whole Blood 125 mg/dL (75-99)
[2021-05-28 08:24] VITALS: BP 138/64; RESP 16; TEMP 98.1
[2021-05-28 08:28] LABS: Glucose,Whole Blood 221 mg/dL (75-99)
[2021-05-28] MEDS ORDERED: ASPIRIN 325 MG TAB PO SCH (09:00)
[2021-05-28] MEDS ORDERED: ASPIRIN 81 MG PO SCH (09:00)
--- NOTE | 2021-05-28 10:57 | P.PN ---
Subjective Progress Note Date: 05/28/21 Patient is seen at bedside and she stated he is doing drastically better currently. She denies any further neurological deficits at this moment. She said overnight she had episode of right-sided weakness and she checked her sugar and it was in the 30s. Patient had multiple episodes during this hospital stay of sugar in the 30s to 40s. Objective - Vital Signs Vital signs: Vital Signs Temp 98.1 F 05/28/21 08:00 Pulse 68 05/28/21 04:00 Resp 16 05/28/21 08:00 BP 138/64 05/28/21 08:00 Pulse Ox 98 05/28/21 08:00 Intake & Output 05/27/21 05/28/21 05/28/21 18:59 06:59 18:59 Weight 86.183 kg 86.183 kg Other: Voiding Method Toilet # Voids 1 - Exam GENERAL: The patient is lying in bed and is not in acute distress. NEUROLOGICAL: Higher mental function: The patient is awake, alert, oriented to self, place and time. Patient is following commands. No aphasia and no neglect. Cranial nerves: The pupils are round, equal and reactive to light and a ccommodation. Visual garland are full to confrontation throughout. Extraocular movement is intact no nystagmus is noted. Facial sensation is normal to touch throughout. The facial strength is normal throughout. Hearing is normal bilaterally to hand rub. Tongue is midline and moved [id number] without any difficulty. No dysarthria is noted. Shoulder shrug is normal bilaterally. Motor: Gait is normal with normal arm swing. The strength is 5 over 5 throughout. Normal tone and bulk. Cerebellum: Normal finger to nose bilaterally. Sensation: Sensation is normal to touch throughout. Reflexes (right/left): 3+ throughout except ankles are 2+. Plantars are downgoing bilaterally. WORK-UP: Dozier Virus PCR is not detected. CT of the head is reported as no acute process seen at this time. I personally could not review images since there is only a report and there is no imaging that's uploaded for both the CT and the CT angiography of the head and neck CT angiography of the head and neck support as no significant diameter reduction to account for the patient's symptoms. No significant abnormality. MRI of the brain with and without is reported as negative. I personally reviewed it and that there is no evidence of acute or subacute ischemia and there is no evidence of anything that is enhancing. MRI the cervical with and without is reported as mild posterior C6-C7 cervical disc herniation with a mild relative 7 mm spinal stenosis. No fracture. Carotid duplex is reported as no evidence for hemodynamic significant stenosis. EKG is reported as normal sinus rhythm. Normal EKG. POC glucose was 37 at 6:13AM as well as 36 at 6:29AM as well as 40 at 6:38 AM today. - Labs CBC & Chem 7: 05/27/21 10:30 05/27/21 10:30 Labs: Abnormal Lab Results - Last 24 Hours (Table) 05/27/21 05/27/21 05/28/21 Range/Units 10:30 20:46 06:13 Glucose 133 H (74-99) mg/dL POC Glucose (mg/dL) 134 H 37 L (75-99) mg/dL 05/28/21 05/28/21 05/28/21 Range/Units 06:29 06:38 06:53 Glucose (74-99) mg/dL POC Glucose (mg/dL) 36 L 40 L 125 H (75-99) mg/dL 05/28/21 Range/Units 08:27 Glucose (74-99) mg/dL POC Glucose (mg/dL) 221 H (75-99) mg/dL Assessment and Plan Assessment: * Recurrent transient right hemiparesis (onset is 05/24/2021. Had total of 3 episodes and had few episodes while inpatient): Is due to her hypoglycemia which can mimic stroke-like symptoms. * Repeated hypoglycemia as low as 36 during this hospital admission. * Mild C6 to C7 spondylosis * Diabetes mellitus * Hyperlipidemia Plan: * I will place the patient on her home dose of ASA 81mg daily (rather than 325mg daily) since unlikely stroke or TIA. We'll decrease the patient the Lipitor from 80 to40 mg daily at bedtime and on discharge recommend the patient to be on her home medication of Zocor 20 mg daily at bedtime.. * 2-D echo, lipid panel, HbA1C are pending * Continue neuro checks * On cardiac monitoring * PT OT and REEL SLITTER are consulted * Please avoid any further hypoglycemia. We'll defer the management to the primary team. * We'll defer the rest of medical management to the primary team * If the patient continues to have right-sided weakness even though the sugar is controlled then the please notify neurology team. Otherwise patient is clear from a neurological perspective. Recommend for the patient to follow-up with a neurologist one time because of her symptoms as an outpatient within 1-2 w eeks. Her cervical spondylosis it is mild over the C6-C7 and she can follow up as an outpatient but from a neurological perspective she does not need surgery at this point. The plan is discussed with the patient and her nurse. There is no further workup needed at this time. Please notify neurology if any further concerns. Karel Urena M.D. Neuro-hospitalist Time with Patient: Less than 30
[2021-05-28 11:37] LABS: Glucose,Whole Blood 179 mg/dL (75-99)
--- NOTE | 2021-05-28 11:59 | P.DS ---
Providers Date of admission: 05/27/21 13:08 Expected date of discharge: 05/28/21 Attending physician: Adriane Tijerina MD Consults: 05/27/21 13:07 Consult Physician Routine Consulting Provider: Karel Urena Consult Reason/Comments: CVA Do you want consulting provider notified?: Yes Primary care physician: [facility] Course: 55-year-old woman with medical history of hypertension, hyperlipidemia, type 1 diabetes presented for 3 days of difficulty coordinating right-sided extremity movements. Right-sided Ataxia -Admitted to observation, telemetry. MRI did not demonstrate stroke, no abnormal findings. Neurology consulted. CT Head and H/N did not demonstrate vascular abnormalities or hemorrhage. Echo was deferred due to clear etiology of symptoms as below. Type 1 diabetes Hypoglycemia -Patient's home dose insulin was resumed, but patient's symptoms returned at the same time that CBG checks indicated hypoglycemia to the 30s. Pt has been increasing her pre-meal insulin dose and skipping night time meals leading to AM hypoglycemia. Pt was counseled on this and her insulin was down-titrated appropriately on discharge with instructions to f/u with PCP for further titration as necessary. Hypertension Hyperlipidemia -Resumed home medications, no changes Assessment: Gen: awake, alert HEENT: normocephalic, atraumatic, good hearing acuity, moist mucous membranes Resp: good air exchange, breathing comfortably with no accessory muscle use, clear to auscultation bilaterally CVS: good distal perfusion x 4, regular rate and rhythm without murmurs GI: soft, NTTP, ND : no SPT, no CVAT, sexton catheter not present MSK: no pitting edema, no clubbing Neuro: 5 out of 5 motor strength in all 4 extremities, no sensory deficits, cranial nerves II through XII are intact, no deficits in finger to nose or heel to deluna Psych: cooperative, euthymic mood Patient Condition at Discharge: Good Plan - Discharge Summary New Discharge Prescriptions: New Aspirin 81 mg PO DAILY tab Continue Simvastatin [Zocor] 20 mg PO HS lisinopriL [Zestril] 5 mg PO HS Insulin Aspart [Insulin Aspart Flexpen] See Protocol SQ TID-W/MEALS #0 MDD 30 units Changed Insulin Degludec [Tresiba Flextouch U-200 Pen] 36 units SQ HS #0 Discharge Medication List Simvastatin [Zocor] 20 mg PO HS 09/10/14 [History] lisinopriL [Zestril] 5 mg PO HS 05/27/21 [History] Aspirin 81 mg PO DAILY tab 05/28/21 [Rx] Insulin Aspart [Insulin Aspart Flexpen] See Protocol SQ TID-W/MEALS #0 MDD 30 units 05/28/21 [Rx] Insulin Degludec [Tresiba Flextouch U-200 Pen] 36 units SQ HS #0 05/28/21 [Rx] Follow up Appointment(s)/Referral(s): Lamin De Leon MD [Primary Care Provider] - 1-2 days Patient Instructions/Handouts: Hypoglycemia in a Person with Diabetes (DC) Discharge Disposition: HOME SELF-CARE
[2021-05-28] MEDS ORDERED: ATORVASTATIN 40 MG TAB PO SCH (21:00)
== END 2021-05-28 12:17 | disposition home or self-care (01) | DRG 638 ==
LOC: EC 09:10 → 3SCARD 13:08
PROVIDERS: ADMIT Internal Medicine; ATTEND Internal Medicine
DX: E10.649 Type 1 diabetes mellitus with hypoglycemia without coma (principal); G81.91 Hemiplegia, unspecified affecting right dominant side; R27.0 Ataxia, unspecified; Z20.822 Contact with and (suspected) exposure to COVID-19; M47.812 Spondylosis without myelopathy or radiculopathy, cervical region; K21.9 Gastro-esophageal reflux disease without esophagitis; E78.5 Hyperlipidemia, unspecified; I10 Essential (primary) hypertension; R29.701 NIHSS score 1; Z79.4 Long term (current) use of insulin; Z79.82 Long term (current) use of aspirin; Z88.8 Allergy status to other drugs, medicaments and biological substances; Z79.899 Other long term (current) drug therapy
CPT/HCPCS: 36415; 70450; 70496; 70498; 70553; 71046; 72156; 80053; 84484; 85025; 85610; 85730; 87635; 93005; 93880; 99285

== ENCOUNTER 2021-08-01 11:03 | Emergency (ER) | payer BC ==
[2021-08-01 11:09] VITALS: BP 144/75; PULSE 74; RESP 18; TEMP 97.6
--- NOTE | 2021-08-01 11:41 | ED ---
General Adult HPI - General Chief complaint: Upper Respiratory Infection Stated complaint: Covid +, sore throat & cough Time Seen by Provider: 08/01/21 11:11 Source: patient Mode of arrival: ambulatory Limitations: no limitations - History of Present Illness Initial comments: This 55-year-old female with past abdominal history of diabetes mellitus prese nts to the emergency department with COVID-19, requesting the antibiotic infusion. Patient states on Tuesday she began having a cough, runny nose, sore throat and fever of 99.5. Patient states she tested positive for COVID-19 yesterday and is here to see if she could get that antibiotic infusion. Patient states she has been taking Tylenol for symptom relief which has seemed to help. Patient denies any chest pain, shortness of breath, abdominal pain, headache, change in vision, change in bowel bladder, change in appetite. - Related Data Home Medications Medication Instructions Recorded Confirmed Simvastatin [Zocor] 20 mg PO HS 03/13/14 05/27/21 lisinopriL [Zestril] 5 mg PO HS 05/27/21 05/27/21 Previous Rx's Medication Instructions Recorded Aspirin 81 mg PO DAILY tab 05/28/21 Insulin Aspart [Insulin Aspart See Protocol SQ TID-W/MEALS #0 05/28/21 Flexpen] MDD 30 units Insulin Degludec [Tresiba 36 units SQ HS #0 05/28/21 Flextouch U-200 Pen] Allergies Allergy/AdvReac Type Severity Reaction Status Date / Time pseudoephedrine HCl Allergy Rash/Hives Verified 08/01/21 11:07 [From [facility]] Review of Systems ROS Statement: Those systems with pertinent positive or pertinent negative responses have been documented in the HPI. ROS Other: All systems not noted in ROS Statement are negative. 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,-2014 ELEVATED LIVER ENZYMES History of Any Multi-Drug Resistant Organisms: None Reported Past Surgical History: No Surgical Hx Reported Additional Past Surgical History / Comment(s): TOOTH EXTRACTION,FACIAL MOLE REMOVED Past Anesthesia/Blood Transfusion Reactions: Previous Problems w/ Anesthesia Additional Past Anesthesia/Blood Transfusion Reaction / Comment(s): DIFFICULTY WAKING Past Psychological History: No Psychological Hx Reported Smoking Status: Never smoker Past Alcohol Use History: Rare Past Drug Use History: None Reported - Past Family History Father Additional Family Medical History / Comment(s): AT AGE 42 FROM LEUKEMIA, PSORIASES Mother Family Medical History: CVA/TIA, Diabetes Mellitus, Myocardial Infarction (OR) Additional Family Medical History / Comment(s): GLAUCOMA, General Exam Limitations: no limitations General appearance: alert, in no apparent distress Head exam: Present: atraumatic, normocephalic Eye exam: Present: EOMI ENT exam: Present: mucous membranes moist Neck exam: Present: full ROM Respiratory exam: Present: normal lung sounds bilaterally. Absent: respiratory distress, wheezes, rales, rhonchi, stridor Cardiovascular Exam: Present: regular rate, normal rhythm, normal heart sounds. Absent: systolic murmur, diastolic murmur, rubs, gallop, clicks GI/Abdominal exam: Present: soft, normal bowel sounds. Absent: distended, tenderness, guarding, rebound, rigid Extremities exam: Present: full ROM Back exam: Absent: tenderness, CVA tenderness (R), CVA tenderness (L) Neurological exam: Present: alert, oriented X3, CN II-XII intact Psychiatric exam: Present: normal affect, normal mood Skin exam: Present: warm, dry, intact, normal color. Absent: rash Course Vital Signs 08/01/21 11:07 Temperature 97.6 F Pulse Rate 74 Respiratory 18 Rate Blood Pressure 144/75 O2 Sat by Pulse 98 Oximetry Medical Decision Making - Medical Decision Making This 55-year-old female presenting to the emergency department with COVID-19. Patient did not qualify for the COVID-19 antibody infusion. Patient sent home, conservative therapy was discussed. Patient advised to follow-up with primary care provider in next 24-48 hours. Patient denies any chest pain or shortness of breath. Strict return precautions were discussed. Patient verbally agreed to plan. Patient sent home in stable condition. Disposition Clinical Impression: COVID-19 Disposition: HOME SELF-CARE Condition: Stable Instructions (If sedation given, give patient instructions): Coronavirus Disease 2019 (COVID-19) Additional Instructions: Please return to the emergency department with any concerning, new, or worsening symptoms. Please up with primary care provider next 24-48 hours. Take [id number] zinc, vitamin C, vitamin D. Advised to a pulse oximeter from [facility] and return to the emergency department if oxygen drops below 90%. Is patient prescribed a controlled substance at d/c from ED?: No Referrals: Lamin De Leon MD [Primary Care Provider] - 1-2 days Time of Disposition: 11:41
== END 2021-08-01 12:00 | disposition home or self-care (01) ==
LOC: EC 11:03
DX: U07.1 COVID-19 (principal); E11.9 Type 2 diabetes mellitus without complications; E78.5 Hyperlipidemia, unspecified; K21.9 Gastro-esophageal reflux disease without esophagitis; Z79.82 Long term (current) use of aspirin; Z79.4 Long term (current) use of insulin
CPT/HCPCS: 99283

== ENCOUNTER → 2021-11-14 | Outpatient (CLI) | payer BC ==
--- NOTE | 2021-11-14 15:33 | MR ---
EXAMINATION TYPE: MR lumbar spine wo con DATE OF EXAM: 11/14/2021 COMPARISON: None HISTORY: Numbness in legs, paresthesia of lower extremity Multiplanar multiecho imaging of the lumbar spine without contrast. Lumbar vertebra have normal alignment. There is mild degenerative disc space narrowing in the lumbar spine. No compression fracture. There is a small posterior concentric L4-5 disc herniation. There is developmentally adequate spinal canal and no spinal stenosis. No evidence of focal bone destruction. No lumbar paraspinal mass. The neural foramina are fairly well maintained. IMPRESSION: Minor degenerative disc changes. Mild posterior L4-5 disc bulging. No spinal stenosis. No fracture.
== END | disposition home or self-care (01) ==
LOC: RADMRIMAIN 09:58
PROVIDERS: ATTEND Family Medicine
DX: M51.26 Other intervertebral disc displacement, lumbar region (principal); M51.36 Other intervertebral disc degeneration, lumbar region
CPT/HCPCS: 72148

== ENCOUNTER → 2022-05-12 | Outpatient (CLI) | payer BC ==
--- NOTE | 2022-05-13 15:48 | MM ---
Reason for Exam: Screening (asymptomatic). Last mammogram was performed 1 year(s) and 1 month(s) ago. Patient History: Menarche at age 15. First Full-Term at age 25. Patient has history of breast feeding. Risk Values: Zoya 5 year model risk: 1.0%. NCI Lifetime model risk: 7.5%. Prior Study Comparison: 12/19/2012 Bilateral Screening Mammogram, [facility]. 02/06/2014 Bilateral Screening Mammogram, [facility]. 09/06/2015 Bilateral Screening Mammogram, [facility]. 09/17/2016 Bilateral Screening Mammogram, [facility]. 05/02/2018 Bilateral Screening Mammogram, [facility]. 12/04/2019 Bilateral Screening Mammogram, [facility]. 05/01/2021 Bilateral Screening Mammogram, [facility]. Tissue Density: There are scattered fibroglandular densities. Findings: Analyzed By CAD. Findings appear stable. No suspicious groups of microcalcifications, spiculated or lobular masses, architectural distortion or other secondary signs of malignancy are mammographically apparent. Overall Assessment: Benign, BI-RAD 2 Management: Screening Mammogram of both breasts in 1 year. A negative mammogram report should not preclude additional follow up of suspicious palpable abnormalities. Patient should continue monthly self breast exam. A clinical breast exam by your physician is recommended on an annual basis and results should be correlated with mammographic findings. Electronically signed and approved by: Lencho Anthony D.O. Radiologis
== END | disposition home or self-care (01) ==
LOC: RADMAMWWP 16:45
PROVIDERS: ATTEND Family Medicine
DX: Z12.31 Encounter for screening mammogram for malignant neoplasm of breast (principal)
CPT/HCPCS: 77063; 77067

== ENCOUNTER → 2022-05-18 | Outpatient (CLI) | payer BC ==
[2022-05-18 13:38] VITALS: BP 127/82; PULSE 79; RESP 16; TEMP 97.9
--- NOTE | 2022-05-18 14:33 | P.HPOB ---
History of Present Illness H&P Date: 05/18/22 Chief Complaint: The patient is here for her routine gynecologic exam. This is a 56-year-old with an LMP of 04/25/2022. The patient is here to establish with this office. It has been about 4 or 5 years since her last pelvic exam. Menstrual periods began being less predictable about 1 year ago. They have been anywhere from every 3 weeks to 2-3 months. Flow has also been variable. She did have some hot flashes or night sweats 1-2 years ago, but they are now not very bothersome. She is otherwise without complaints. Review of Systems The patient's weight has been stable over the last year. She denies respiratory, cardiac, or G.I. problems. Past Medical History Past Medical History: Diabetes Mellitus, GERD/Reflux, Hyperlipidemia Additional Past Medical History / Comment(s): Type 1 diabetes. 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 History of Any Multi-Drug Resistant Organisms: None Reported Past Surgical History: No Surgical Hx Reported Additional Past Surgical History / Comment(s): TOOTH EXTRACTION,FACIAL MOLE REMOVED Past Anesthesia/Blood Transfusion Reactions: Previous Problems w/ Anesthesia Additional Past Anesthesia/Blood Transfusion Reaction / Comment(s): DIFFICULTY WAKING Past Psychological History: No Psychological Hx Reported (She denies current depression.) Smoking Status: Never smoker Past Alcohol Use History: Rare (5 per year) Past Drug Use History: None Reported Additional History: She has been since 2017 and this is her second marriage. - Past Family History Father Family Medical History: Cancer Additional Family Medical History / Comment(s): AT AGE 42 FROM LEUKEMIA, PSORIASES Mother Family Medical History: CVA/TIA, Diabetes Mellitus, Myocardial Infarction ([place]) Additional Family Medical History / Comment(s): GLAUCOMA, Brother(s) Family Medical History: Diabetes Mellitus Additional Family Medical History / Comment(s): 5 brothers have diabetes. Sister(s) Family Medical History: Diabetes Mellitus Medications and Allergies Home Medications Medication Instructions Recorded Confirmed Type Simvastatin [Zocor] 20 mg PO HS 03/13/14 05/18/22 History lisinopriL [Zestril] 5 mg PO HS 05/27/21 05/18/22 History Aspirin 81 mg PO DAILY tab 05/28/21 05/18/22 Rx Insulin Aspart [Insulin Aspart See Protocol SQ TID-W/MEALS #0 05/28/21 05/18/22 Rx Flexpen] MDD 30 units Insulin Degludec [Tresiba 18 units SQ HS 08/01/21 05/18/22 History Flextouch U-200 Pen] flaxseed oiL [Flaxseed Oil] 1,000 mg PO HS 08/01/21 05/18/22 History Multivitamin [Multivitamins Adult 1 cap PO DAILY 05/18/22 05/18/22 History Gummies] Tirzepatide [Mounjaro] 2.5 mg INJ WEEKLY 05/18/22 05/18/22 History Allergies Allergy/AdvReac Type Severity Reaction Status Date / Time pseudoephedrine HCl Allergy Rash/Hives Verified 05/18/22 13:33 [From [facility]] Exam Vital Signs Temp Pulse Resp BP Pulse Ox 05/18/22 13:36 97.9 F 79 16 127/82 100 Intake and Output 05/17/22 05/18/22 05/18/22 22:59 06:59 14:59 Other: Weight 84.368 kg Height 5 feet 4 inches, weight 186 pounds, BMI 31.9. This is a well-developed well-nourished white female who is alert and oriented times 3 in no acute distress. HEENT: Within normal limits. NECK: Supple without mass or thyromegaly. CHEST AND LUNGS: Clear to auscultation. HEART: Regular rate and rhythm. BREASTS: Are without mass or discharge. AXILLARY EXAM: Negative for adenopathy. BACK: Negative for CVA tenderness. ABDOMEN: Soft, nontender, without palpable masses. There is a small glucose monitor on the left side of her abdomen. PELVIC EXAM: Normal external genitalia. Cervix and vagina appear normal. There is no unusual discharge. There is no evidence of prolapse. The uterus is midposition, nongravid size and nontender. There are no palpable adnexal masses or tenderness. RECTAL EXAM: Rectovaginal exam is negative for mass or tenderness and is negative for occult blood. EXTREMITIES: Nontender. IMPRESSION: 1. 56-year-old perimenopausal female with normal gynecologic exam. 2. Mild menstrual irregularity consistent with the perimenopause during the past 1 year. Minimal vasomotor symptoms. PLAN: 1. Pap smear cotest was performed. 2. Self breast awareness was discussed with the patient. We have also discussed symptoms associated with inflammatory breast cancer. 3. Screening mammogram was done on 05/12/2022 and was benign. 4. The patient will keep a menstrual calendar and call if menstrual problems. 5. Osteoporosis prevention was discussed. I have stressed the importance of adequate calcium, vitamin D and regular exercise. Recommended amounts of calcium and vitamin D were also discussed. 6. She has completed her Covid vaccination series and has received 2 boosters. 7. Colorectal cancer screening has been done through her PCP using Cologuard. She states it was negative in 2020. 8. She was advised to return in one year for her annual well woman exam and as needed.
== END | disposition home or self-care (01) ==
LOC: WWCWWP 13:18
PROVIDERS: ATTEND Obstetrics & Gynecology
DX: Z53.9 Procedure and treatment not carried out, unspecified reason (principal)

== ENCOUNTER → 2023-05-16 | Outpatient (CLI) | payer BC ==
--- NOTE | 2023-05-17 06:34 | MM ---
Reason for Exam: Screening (asymptomatic). Last screening mammogram was performed 12 month(s) ago. Patient History: Menarche at age 15. First Full-Term at age 25. Patient has history of breast feeding. Last menstrual period: 05/02/2023 Risk Values: Zoya 5 year model risk: 1.1%. NCI Lifetime model risk: 7.4%. Prior Study Comparison: 12/04/2019 Bilateral Screening Mammogram, [facility]. 05/01/2021 Bilateral Screening Mammogram, [facility]. 05/12/2022 Bilateral MG 3D screening mammo w/cad, [facility]. Tissue Density: There are scattered fibroglandular densities. Findings: Analyzed By CAD. There is no suspicious group of microcalcifications or new suspicious mass in either breast. Overall Assessment: Negative, BI-RAD 1 Management: Screening Mammogram of both breasts in 1 year. A clinical breast exam by your physician is recommended on an annual basis and results should be correlated with mammographic findings. Note on Zoya scores and lifetime risk: 1. A Zoya score greater than 3% is considered moderate risk. If this is the case, consider specialist referral to assess eligibility for a risk reducing agent. If overall lifetime risk for the development of breast cancer is 20% or higher, the patient may qualify for future screening with alternating mammogram and breast MRI. Electronically signed and approved by: Nathanael Power D.O.
== END | disposition home or self-care (01) ==
LOC: RADMAMWWP 15:59
PROVIDERS: ATTEND Family Medicine
DX: Z12.31 Encounter for screening mammogram for malignant neoplasm of breast (principal)
CPT/HCPCS: 77063; 77067

== ENCOUNTER 2023-11-25 20:33 | Emergency (ER) | payer BC ==
--- NOTE | 2023-11-25 21:40 | ED ---
Head Injury HPI - General Chief complaint: Head Injury Stated complaint: Head Injury Time Seen by Provider: 11/25/23 20:53 Source: patient, RN notes reviewed, old records reviewed Mode of arrival: ambulatory Limitations: no limitations - History of Present Illness Initial comments: This is a 58-year-old female to the ER for evaluation of head injury severe head injury headache neck pain this occurred after gardening statue fell on the patient's head. Patient has pain and increased pain with range of motion of that head with no travel history or sick contacts no other complaints. Patient has had some nausea and vomiting since with severe headache worst headache of her life MD Complaint: head injury, head pain -: days(s) Mechanism of Injury: work related injury, machine or tool related injury Previous Trauma to this Area: Yes Place: work Radiation: none Severity: severe Severity scale (1-10): 8 Consistency: constant Provoking factors: none known Other Injuries: none - Related Data Home Medications Medication Instructions Recorded Confirmed Simvastatin [Zocor] 20 mg PO HS 03/13/14 05/18/22 lisinopriL [Zestril] 5 mg PO HS 05/27/21 05/18/22 Insulin Degludec [Tresiba 18 units SQ HS 08/01/21 05/18/22 Flextouch U-200 Pen] flaxseed oiL [Flaxseed Oil] 1,000 mg PO HS 08/01/21 05/18/22 Multivitamin [Multivitamins Adult 1 cap PO DAILY 05/18/22 05/18/22 Gummies] Tirzepatide [Mounjaro] 2.5 mg INJ WEEKLY 05/18/22 05/18/22 Previous Rx's Medication Instructions Recorded Aspirin 81 mg PO DAILY tab 05/28/21 Insulin Aspart [Insulin Aspart See Protocol SQ TID-W/MEALS #0 05/28/21 Flexpen] MDD 30 units Allergies/Adverse reactions: Allergies Allergy/AdvReac Type Severity Reaction Status Date / Time pseudoephedrine HCl Allergy Rash/Hives Verified 11/25/23 20:50 [From [facility]afeconrad] Review of Systems ROS Statement: Those systems with pertinent positive or pertinent negative responses have been documented in the HPI. ROS Other: All systems not noted in ROS Statement are negative. Past Medical History Past Medical History: Diabetes Mellitus, GERD/Reflux, Hyperlipidemia Additional Past Medical History / Comment(s): Type 1 diabetes. 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 History of Any Multi-Drug Resistant Organisms: None Reported Past Surgical History: No Surgical Hx Reported Additional Past Surgical History / Comment(s): TOOTH EXTRACTION,FACIAL MOLE REMOVED Past Anesthesia/Blood Transfusion Reactions: Previous Problems w/ Anesthesia Additional Past Anesthesia/Blood Transfusion Reaction / Comment(s): DIFFICULTY WAKING Past Psychological History: No Psychological Hx Reported Smoking Status: Never smoker Past Alcohol Use History: Rare Past Drug Use History: None Reported - Past Family History Brother(s) Family Medical History: Diabetes Mellitus Additional Family Medical History / Comment(s): 5 brothers have diabetes. Sister(s) Family Medical History: Diabetes Mellitus Father Family Medical History: Cancer Additional Family Medical History / Comment(s): AT AGE 42 FROM [place]UKEM[place], PSORIASES Mother Family Medical History: CVA/TIA, Diabetes Mellitus, Myocardial Infarction ([place]) Additional Family Medical History / Comment(s): GLAUCOMA, General Exam Limitations: no limitations General appearance: alert, in no apparent distress Head exam: Present: atraumatic, normocephalic, normal inspection Eye exam: Present: normal appearance, PERRL, EOMI. Absent: scleral icterus, conjunctival injection, periorbital swelling ENT exam: Present: normal exam, mucous membranes moist Neck exam: Present: normal inspection. Absent: tenderness, meningismus, lymphadenopathy Respiratory exam: Present: normal lung sounds bilaterally. Absent: respiratory distress, wheezes, rales, rhonchi, stridor Cardiovascular Exam: Present: regular rate, normal rhythm, normal heart sounds. Absent: systolic murmur, diastolic murmur, rubs, gallop, clicks GI/Abdominal exam: Present: soft, normal bowel sounds. Absent: distended, tenderness, guarding, rebound, rigid Extremities exam: Present: normal inspection, full ROM, normal capillary refill. Absent: tenderness, pedal edema, joint swelling, calf tenderness Back exam: Present: normal inspection Neurological exam: Present: alert, oriented X3, CN II-XII intact Psychiatric exam: Present: normal affect, normal mood Skin exam: Present: warm, dry, intact, normal color. Absent: rash Course Vital Signs 11/25/23 11/25/23 20:47 23:15 Temperature 98.3 F 98.2 F Pulse Rate 70 74 Respiratory 68 H 18 Rate Blood Pressure 157/86 145/78 O2 Sat by Pulse 99 99 Oximetry - Reevaluation(s) Reevaluation #1: Medical records reviewed Reevaluation #2: Patient symptoms improved Reevaluation #3: Patient informed of results questions answered Reevaluation #4: Was pt. sent in by a medical professional or institution (, GISEL, COMPRESSED GAS EQUIPMENT MECHANIC, urgent care, hospital, or correction...) When possible be specific @ -no Did you speak to anyone other than the patient for history (EMS, parent, family, police, friend...)? What history was obtained from this source @ -no Did you review nursing and triage notes (agree or disagree)? Why? @ -agree Are old charts reviewed (outside hosp., previous admission, EMS record, old EKG, old radiological studies, urgent care reports/EKG's, correction records)? Report findings @ -yes Differential Diagnosis (chest pain, altered mental status, abdominal pain women, abdominal pain men, vaginal bleeding, weakness, fever, dyspnea, syncope, headache, dizziness, GI bleed, back pain, seizure, CVA, palpatations, mental health, musculoskeletal)? @ -prior EKG interpreted by me (3pts min.). @ -no X-rays interpreted by me (1pt min.). @ -no CT interpreted by me (1pt min.). @ -yes negative for acute disease U/S interpreted by me (1pt. min.). @ -no What testing was considered but not performed or refused? (CT, X-rays, U/S, labs)? Why? @ -none What meds were considered but not given or refused? Why? @ -none Did you discuss the management of the patient with other professionals (professionals i.e. , GISEL, COMPRESSED GAS EQUIPMENT MECHANIC, lab, RT, psych nurse, social services coordinator, addiction therapist, teacher, lodge officer, immigration case worker)? Give summary @ -no Was smoking cessation discussed for >3mins.? @ -no Were there social determinants of health that impacted care today? How? (Homelessness, low income, unemployed, alcoholism, drug addiction, transportation, low edu. Level, literacy, decrease access to med. care, nursing home, rehab)? @ -none Was there de-escalation of care discussed even if they declined (Discuss DNR or withdrawal of care, Hospice)? DNR status @ -no What co-morbidities impacted this encounter? (DM, HTN, Smoking, COPD, CAD, Cancer, CVA, ARF, Chemo, Hep., AIDS, mental health diagnosis, sleep apnea, morbid obesity)? @ -none Was patient admitted / discharged? Hospital course, mention meds given and route, prescriptions, significant lab abnormalities, going to OR and other pertinent info. @ - 58 female to ER for evaluation of head injury, patient has negative imaging of the brain headache is improved and patient can be discharged home Discharged Was critical care preformed (if so, how long)? @ -no Undiagnosed new problem with uncertain prognosis? @ -no Drug Therapy requiring intensive monitoring for toxicity (Heparin, Nitro, Insulin, Cardizem)? @ -no Were any procedures done? @ -no Diagnosis/symptom? @ -Head injury headache Acute, or Chronic, or Acute on Chronic? @ -Acute Uncomplicated (without systemic symptoms) or Complicated (systemic symptoms)? @ -Complicated Side effects of treatment? @ -no Exacerbation, Progression, or Severe Exacerbation? @ -exacerbation Poses a threat to life or bodily function? How? (Chest pain, [place], [place], pneumonia, PE, COPD, DKA, ARF, appy, cholecystitis, CVA, Diverticulitis, Homicidal, Suicidal, threat to staff... and all critical care pts) @ -yes significant head injury head injury headache Reevaluation #5: Differential Headache: Migraine, tension, cluster, carbon monoxide, central venous thrombosis, pension karma temporal arteritis, acute closure glaucoma, intercranial hemorrhage, mastoiditis, sinusitis, head injury, this is not meant to be an all-inclusive list. Medical Decision Making - Medical Decision Making 58 female to ER for evaluation of head injury, patient has negative imaging of the brain headache is improved and patient can be discharged home - Radiology Data Radiology results: report reviewed (CT of the brain brain C-spine is negative for traumatic injury), image reviewed Disposition Clinical Impression: Closed head injury Disposition: HOME SELF-CARE Condition: Good Instructions (If sedation given, give patient instructions): Concussion (ED) Is patient prescribed a controlled substance at d/c from ED?: No Referrals: Lamin De Leon MD [Primary Care Provider] - 1-2 days
--- NOTE | 2023-11-25 23:05 | CT ---
EXAM: CT Head Without Intravenous Contrast CLINICAL HISTORY: ITS.REASON CT Reason: fall TECHNIQUE: Axial computed tomography images of the head/brain without intravenous contrast. CTDI is 45.2 mGy and DLP is 1098 mGy-cm. This CT exam was performed using one or more of the following dose reduction techniques: automated exposure control, adjustment of the mA and/or kV according to patient size, and/or use of iterative reconstruction technique. COMPARISON: Comparison made to prior brain MRI from May 27, 2021. FINDINGS: Brain: Unremarkable. No hemorrhage. No significant white matter disease. No edema. Ventricles: Unremarkable. No ventriculomegaly. Bones/joints: Unremarkable. No acute fracture. Soft tissues: Unremarkable. Sinuses: Unremarkable as visualized. No acute sinusitis. Mastoid air cells: Unremarkable as visualized. No mastoid effusion. IMPRESSION: No evidence of acute intracranial pathology. EXAM: CT Cervical Spine Without Intravenous Contrast CLINICAL HISTORY: ITS.REASON CT Reason: fall TECHNIQUE: Axial computed tomography images of the cervical spine without intravenous contrast. CTDI is 10.3 mGy and DLP is 291.4 mGy-cm. This CT exam was performed using one or more of the following dose reduction techniques: automated exposure control, adjustment of the mA and/or kV according to patient size, and/or use of iterative reconstruction technique. COMPARISON: No relevant prior studies available. FINDINGS: Vertebrae: Unremarkable. No acute fracture. Discs/spinal canal/neural foramina: No acute findings. No spinal canal stenosis. Soft tissues: Unremarkable. IMPRESSION: No evidence of acute cervical spine pathology.
[2023-11-26 00:07] VITALS: BP 145/78; PULSE 74; RESP 18; TEMP 98.2
== END 2023-11-25 23:18 | disposition home or self-care (01) ==
LOC: EC 20:33
DX: S09.90XA Unspecified injury of head, initial encounter (principal); Z88.8 Allergy status to other drugs, medicaments and biological substances; W20.8XXA Other cause of strike by thrown, projected or falling object, initial encounter; Y99.0 Civilian activity done for income or pay
CPT/HCPCS: 72125; 70450; 99283; L0120

== ENCOUNTER → 2024-04-24 | Outpatient (CLI) | payer BC ==
[2024-04-24 11:37] VITALS: BP 134/76; PULSE 83; RESP 16; TEMP 98.5
--- NOTE | 2024-04-24 12:23 | P.HPOB ---
History of Present Illness H&P Date: 04/24/24 Chief Complaint: Patient is here for her routine gynecologic exam. This is a 58-year-old G3, P3 with an LMP of June 2023. Her menstrual periods continue to space out. She denies any significant hot flashes. Review of Systems She has lost about 22 pounds over the past 2 years. She states she was taking week OV for weight loss and more recently has been on Ozempic. She denies respiratory, cardiac, or GI problems. Past Medical History Past Medical History: Diabetes Mellitus, GERD/Reflux, Hyperlipidemia Additional Past Medical History / Comment(s): Type 1 diabetes. 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 History of Any Multi-Drug Resistant Organisms: None Reported Past Surgical History: No Surgical Hx Reported Additional Past Surgical History / Comment(s): TOOTH EXTRACTION,FACIAL MOLE REMOVED Past Anesthesia/Blood Transfusion Reactions: Previous Problems w/ Anesthesia Additional Past Anesthesia/Blood Transfusion Reaction / Comment(s): DIFFICULTY WAKING Past Psychological History: No Psychological Hx Reported Smoking Status: Never smoker Past Alcohol Use History: Occasional (0-2 drinks per month.) Past Drug Use History: None Reported Additional History: She has been since 2016 and this is her second marriage. - Past Family History Brother(s) Family Medical History: Diabetes Mellitus Additional Family Medical History / Comment(s): 5 brothers have diabetes. Sister(s) Family Medical History: Diabetes Mellitus Father Family Medical History: Cancer Additional Family Medical History / Comment(s): AT AGE 42 FROM [place]UKEM[place], PSORIASES Mother Family Medical History: CVA/TIA, Diabetes Mellitus, Myocardial Infarction ([place]) Additional Family Medical History / Comment(s): GLAUCOMA, Medications and Allergies Home Medications Medication Instructions Recorded Confirmed Type Simvastatin [Zocor] 20 mg PO HS 03/13/14 04/24/24 History lisinopriL [Zestril] 5 mg PO HS 05/27/21 04/24/24 History Aspirin 81 mg PO DAILY tab 05/28/21 04/24/24 Rx Insulin Aspart [Insulin Aspart See Protocol SQ TID-W/MEALS #0 05/28/21 04/24/24 Rx Flexpen] MDD 30 units Insulin Degludec [Tresiba 24 units SQ HS 08/01/21 04/24/24 History Flextouch U-200 Pen] flaxseed oiL [Flaxseed Oil] 1,000 mg PO HS 08/01/21 04/24/24 History Semaglutide [Ozempic] 0.5 mg INJ WEEKLY 04/24/24 04/24/24 History Allergies Allergy/AdvReac Type Severity Reaction Status Date / Time pseudoephedrine HCl Allergy Rash/Hives Verified 04/24/24 11:33 [From Sudafed] Exam Vital Signs Temp Pulse Resp BP Pulse Ox 04/24/24 11:35 98.5 F 83 16 134/76 99 Intake and Output 04/23/24 04/24/24 04/24/24 22:59 06:59 14:59 Other: Weight 74.389 kg Height 5 feet 5 inches, weight 164 pounds, BMI 27.3. This is a well-developed well-nourished white female who is alert and oriented times 3 in no acute distress. HEENT: Within normal limits. NECK: Supple without mass or thyromegaly. CHEST AND LUNGS: Clear to auscultation. HEART: Regular rate and rhythm. BREASTS: Are without mass or discharge. AXILLARY EXAM: Negative for adenopathy. BACK: Negative for CVA tenderness. ABDOMEN: Soft, nontender, without palpable masses. PELVIC EXAM: Normal external genitalia. Cervix is multiparous and has a benign appearing nabothian cyst on the anterior lip measuring approximately 1 x 0.5 cm. There is no unusual discharge. There is no evidence of prolapse. The uterus is midposition, nongravid size and nontender. There are no palpable adnexal masses or tenderness. RECTAL EXAM: Rectovaginal exam is negative for mass or tenderness and is negative for occult blood. EXTREMITIES: Nontender. IMPRESSION: 1. 58-year-old perimenopausal female with increasing oligomenorrhea and normal gynecologic exam. PLAN: 1. Pap smear was deferred since she had a negative Pap smear cotest on 05/18/2022. 2. Self breast awareness was discussed with the patient. We have also discussed symptoms associated with inflammatory breast cancer. 3. Screening mammogram will be due next month and the order slip was given to the patient for this. 4. Osteoporosis prevention was discussed. I have stressed the importance of adequate calcium, vitamin D and regular exercise. Recommended amounts of calcium and vitamin D were also discussed. 5. Keep a menstrual calendar and call if menstrual problems. She will also call if vaginal bleeding after 12 months of amenorrhea. 6. She was advised to return in one year for her annual well woman exam.
== END ==
LOC: WWCWWP 11:23
PROVIDERS: ATTEND Obstetrics & Gynecology

== ENCOUNTER → 2024-07-03 | Outpatient (CLI) | payer BC ==
--- NOTE | 2024-07-03 09:12 | MM ---
Reason for Exam: Screening (asymptomatic). Last mammogram was performed 1 year(s) and 1 month(s) ago. Patient History: Menarche at age 15. First Full-Term at age 25. Postmenopausal. Patient has history of breast feeding. Risk Values: Zoya 5 year model risk: 1.1%. NCI Lifetime model risk: 7.2%. Prior Study Comparison: 05/01/2021 Bilateral Screening Mammogram, [facility]. 05/12/2022 Bilateral MG 3D screening mammo w/cad, [facility]. 05/16/2023 Bilateral MG 3D screening mammo w/cad, [facility]. Tissue Density: There are scattered areas of fibroglandular density. Findings: Analyzed By CAD. The pattern is symmetrical. No significant interval change No suspicious groups of microcalcifications, spiculated or lobular masses, architectural distortion or other secondary signs of malignancy are mammographically apparent. Overall Assessment: Benign, BI-RAD 2 Management: Screening Mammogram of both breasts in 1 year. A negative mammogram report should not preclude additional follow up of suspicious palpable abnormalities. Patient should continue monthly self breast exam. A clinical breast exam by your physician is recommended on an annual basis and results should be correlated with mammographic findings. Note on Zoya scores and lifetime risk: 1. A Zoya score greater than 3% is considered moderate risk. If this is the case, consider specialist referral to assess eligibility for a risk reducing agent. 2. If overall lifetime risk for the development of breast cancer is 20% or higher, the patient may qualify for future screening with alternating mammogram and breast MRI. [facility], , 07/03/2024 9:09 AM. Electronically signed and approved by: Lencho Anthony D.O. Radiologis
== END | disposition home or self-care (01) ==
LOC: RADMAMWWP 08:21
PROVIDERS: ATTEND Obstetrics & Gynecology
DX: Z12.31 Encounter for screening mammogram for malignant neoplasm of breast (principal); R92.323 Mammographic fibroglandular density, bilateral breasts; Z78.0 Asymptomatic menopausal state
CPT/HCPCS: 77063; 77067

== ENCOUNTER → 2025-01-09 | Outpatient (CLI) | payer BC ==
--- NOTE | 2025-01-09 11:48 | CT ---
EXAMINATION TYPE: CT heart w calcium score DATE OF EXAM: 01/09/2025 COMPARISON: None CLINICAL INDICATION: Female, 59 years old with history of Z82.49 FAMILY HX OF ISCHEM HEART DIS AND OT H DIS O; PHH, HX OF HEART DISEASE AND CIRCULATORY DISEASE TECHNIQUE: Prospective Gating was used. Slice thickness: 3mm. Density threshold (HU): 130, Pixel threshold: 3, Algorithm: discrete. CT DLP: 67.[address] CTDI: mGy Automated exposure control for dose reduction was used. FINDINGS: CT CALCIUM SCORING Coronary calcium is a marker for plaque (fatty deposits) in a blood vessel or atherosclerosis (harden ing of the arteries). The presence and amount of calcium detected in a coronary artery by the CT sca n, indicates the presence and amount of atherosclerotic plaque. These calcium deposits appear years before the development of heart disease symptoms such as chest pain and shortness of breath. A calcium score is computed for each of the coronary arteries based upon the volume and density of th e calcium deposits. This can be referred to as your calcified plaque burden. It does not correspond directly to the percentage of narrowing in the artery but does correlate with the severity of the un derlying coronary atherosclerosis. RESULTS Region: LM Calcium Score ([place]): 0 Volume (mm3): 0 Mass (g): 0 Region: RCA Calcium Score ([place]): 0 Volume (mm3): 0 Mass (g): 0 Region: LAD Calcium Score ([place]): 0 Volume (mm3): 0 Mass (g): 0 Region: CX Calcium Score ([place]): 0 Volume (mm3): 0 Mass (g): 0 Region: PDA Calcium Score ([place]): 0 Volume (mm3): 0 Mass (g): 0 Total: Calcium Score ([place]): 0 Volume (mm3): 0 Mass (g): 0 TOTAL CALCIUM SCORE: 0 IMPRESSION: Calcium Score: 0 Implication: No identifiable plaque. Risk of Coronary Artery Disease: Very low, generally less than 5%. CALCIUM SCORE IMPLICATION RISK OF C ORONARY ARTERY DISEASE 0 No identifiable plaque Very low, generally less than 5% 1-10 Minimal identifiable plaque Very unlikely, less than 10% 11-100 Definite, at least mild atherosclerotic plaque Mild or m inimal coronary narrowings likely 101-400 Definite, at least moderate atherosclerotic plaque Mild coronary ar darryl disease highly likely, significant narrowing possible 401 or Higher Extensive atherosclerotic plaque High lik elihood of at least one significant coronary narrowing [facility], , 01/09/2025 11:45 AM
== END | disposition home or self-care (01) ==
LOC: RADCTMAIN 11:01
PROVIDERS: ATTEND Family Medicine
DX: Z82.49 Family history of ischemic heart disease and other diseases of the circulatory system (principal)
CPT/HCPCS: 75571